=== PATIENT | female | born 1990 | race Caucasian/White ===

== ENCOUNTER 2021-05-02 19:21 | Emergency (ER) | payer MEDICAID ==
[~2021-05-02] VITALS: Ht 170.2 cm; Wt 118.6 kg
[2021-05-02] MEDS ORDERED: FAMO20 PO (19:33)
[2021-05-02] MEDS ORDERED: ACETAMINOPHEN/CODEINE 300-30 MG TABLET PO ONE (20:00)
[2021-05-02] MEDS ORDERED: KETOROLAC TROMETHAMINE 60 MG/2 ML VIAL IM ONE (20:00)
[2021-05-02 21:02] VITALS: BP 119/68
== END 2021-05-02 21:05 | disposition home or self-care (01) ==
LOC: EMS 19:24
DX: S39.012A Strain of muscle, fascia and tendon of lower back, initial encounter (principal); Z79.899 Other long term (current) drug therapy; X50.1XXA Overexertion from prolonged static or awkward postures, initial encounter; Y93.89 Activity, other specified; Y92.89 Other specified places as the place of occurrence of the external cause; Y99.8 Other external cause status
CPT/HCPCS: 96372; 99283; J1885

== ENCOUNTER 2021-05-02 22:12 | Emergency (ER) | payer MEDICAID ==
[~2021-05-02] VITALS: Ht 170.2 cm; Wt 100.0 kg
[~2021-05-02 22:12] MED LIST: FAMO20 PO
[2021-05-02] MEDS ORDERED: FAMOTIDINE 10 MG/ML 2 ML VIAL IVP ONE (23:00)
[2021-05-02] MEDS ORDERED: MAG HYDROX/AL HYDROX/SIMETH 30 ML SUSP UDCUP PO ONE (23:00)
[2021-05-02 23:44] LABS: BASOPHILS % (AUTO) 0.1 % (0.0-2.0); EOSINOPHILS % (AUTO) 0.4 % (1.0-6.0); HEMATOCRIT 37.8 % (36-46); HEMOGLOBIN 11.9 g/dL (12.0-16.0); LYMPHOCYTES # (AUTO) 1.7 K/uL (1.0-4.8); LYMPHOCYTES % (AUTO) 12.6 % (22.0-44.0); MEAN CORPUSCULAR HEMOGLOBIN 27.5 pg (26.0-34.0); MEAN CORPUSCULAR HGB CONC 31.5 G/dL (31.0-37.0); MEAN CORPUSCULAR VOLUME 88 fL (80-100); MONOCYTES # (AUTO) 0.7 K/uL (0.1-1.0); MONOCYTES % (AUTO) 5.4 % (2.0-9.0); NEUTROPHILS % (AUTO) 81.5 % (40.0-70.0); PLATELET COUNT (AUTO) 307 K/uL (150-450); RED BLOOD CELL COUNT(AUTO) 4.32 MIL/uL (4.00-5.20); RED CELL DISTRIBUTION WIDTH 13.9 % (11.5-14.5)
[2021-05-02 23:52] LABS: ANION GAP 15 mmol/L (8-16); CALCIUM, TOTAL 8.9 mg/dL (8.8-10.5); CARBON DIOXIDE 25 mmol/L (22-29); CHLORIDE 103 mmol/L (98-107); CREATININE 0.85 mg/dL (0.60-1.30); GLOMERULAR FILTR. RATE CALC > 60 mL/min (>60); GLUCOSE,RANDOM 131 mg/dL (70-110); POTASSIUM 4.3 mmol/L (3.5-5.1); SODIUM SERUM 143 mmol/L (136-145); UREA NITROGEN, BLOOD 15 mg/dL (7-18)
[2021-05-02] MEDS ORDERED: SODIUM CHLORIDE 0.9% 100 ML ONE (23:59)
[2021-05-03] MEDS ORDERED: IOHEXOL 350 MG/ML 100 ML VIAL ONE
[2021-05-03 00:05] LABS: ALANINE AMINOTRANSFERASE 28 U/L (12-78); ALBUMIN 3.2 g/dL (3.4-5.0); ALKALINE PHOSPHATASE 84 U/L (46-116); ASPARTATE AMINOTRANSFERASE 29 U/L (15-37); BILIRUBIN,TOTAL 0.5 mg/dL (0.1-1.0); HCG,QUANTITATIVE < 1 mIU/mL (0-6); LIPASE 55 U/L (73-393); TOTAL PROTEIN, SERUM 6.9 g/dL (6.4-8.2)
[2021-05-03 01:29] VITALS: BP 115/75
== END 2021-05-03 01:26 | disposition home or self-care (01) ==
LOC: EMS 22:19
DX: R10.13 Epigastric pain (principal); R11.2 Nausea with vomiting, unspecified
CPT/HCPCS: 36415; 74177; 80053; 83690; 84702; 85025; 96374; 99285; A9575; J3490; J7050